=== PATIENT | female | born 1990 | race Asian ===

== ENCOUNTER 2024-06-21 18:01 | Emergency (ER) | payer SELFPAY ==
[2024-06-21 19:20] LABS: Bilirubin 3+ (Negative); Blood, Urine 250 (Negative); Clarity Cloudy (Clear); Glucose, Urine (Dipstick) Normal (Negative); Ketone, Urine Negative (Negative); Leukocyte 500 (Negative); Nitrite Positive (Negative); Protein, Urine (Dipstick) 100 mg/dl (Neg-Trace); Specific Gravity, Urine 1.015 (1.005-1.030)
[2024-06-21 19:23] LABS: Pregnancy Test - Urine (BHCG) Negative (Negative); Pregu Control Background? CLEAR/WHITE (CLR/WHITE); Pregu Control Bar Appear? YES (CONTROL BAR); Specific Gravity 1.015 (1.002-1.036)
[2024-06-21 19:43] LABS: CAUTI Indications for Culture Pelvic or flank pain; RBC/HPF Greater than 50 HPF (0-3); Squamous Epithelial 0-3 HPF (0-3); WBC/HPF Greater Than 50 HPF (0-3)
[2024-06-21 19:44] LABS: Bacteria/HPF 1+ HPF (None Seen)
[2024-06-21 19:46] LABS: Urine Culture Reflex Yes Yes
[2024-06-21] MEDS ORDERED: Nitrofurantoin Macrocrystal 50 MG CAP PO SCH (20:00)
== END 2024-06-21 20:13 | disposition home or self-care (01) ==
LOC: CSHERS 18:01
DX: N39.0 Urinary tract infection, site not specified (principal)
CPT/HCPCS: 81001; 81025; 87077; 87086; 99283